=== PATIENT | female | born 2000 | race Caucasian/White ===

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

== ENCOUNTER → 2020-09-04 10:21 | Outpatient (CLI) | payer OTHER, SELFPAY ==
[2020-09-04 09:16] VITALS: BMI 28.6
[2020-09-06 18:40] LABS: HPV Reflexed? NOT INDICATED
[2020-09-06 20:08] LABS: Chlamydia By Nucleic Acid AMP Negative (Negative)
[2020-09-06 20:35] LABS: Gonococcus By Nucleic Acid AMP Negative (Negative)
== END ==
PROVIDERS: PCP Family Medicine; Referring Provider Nurse Practitioner Women's Health; Visit Provider Nurse Practitioner Women's Health
DX: Z12.4 Encounter for screening for malignant neoplasm of cervix (principal); Z11.3 Encounter for screening for infections with a predominantly sexual mode of transmission
CPT/HCPCS: 87491; 87591; 88175; G0145

== ENCOUNTER 2021-03-14 14:06 | Outpatient (CLI) | payer OTHER, SELFPAY | END 2021-03-14 23:59 | disposition short-term general hospital (02) | PROVIDERS: Referring Provider Physician Assistant Surgical; Visit Provider Physician Assistant Surgical | DX: Z20.822 Contact with and (suspected) exposure to COVID-19 (principal) | CPT/HCPCS: 87635; U0003; U0005 ==

== ENCOUNTER → 2022-01-27 | Outpatient (CLI) | payer OTHER, SELFPAY ==
[2022-01-29 22:06] LABS: Chlamydia By Nucleic Acid AMP Negative (Negative)
[2022-01-29 22:25] LABS: Gonococcus By Nucleic Acid AMP Negative (Negative)
== END | disposition home or self-care (01) ==
LOC: LABSPEC 17:07
PROVIDERS: Visit Provider Nurse Practitioner Women's Health
DX: Z11.3 Encounter for screening for infections with a predominantly sexual mode of transmission (principal)
CPT/HCPCS: 87491; 87591

== ENCOUNTER → 2024-11-28 | Outpatient (CLI) | payer OTHER, SELFPAY | END | disposition home or self-care (01) | PROVIDERS: Referring Provider Nurse Practitioner Women's Health; Visit Provider Nurse Practitioner Women's Health | DX: Z12.4 Encounter for screening for malignant neoplasm of cervix (principal) | CPT/HCPCS: 88175; G0145 ==